=== PATIENT | female | born 1995 | race Caucasian/White ===

== ENCOUNTER 2017-05-12 17:26 | Emergency (ER) | payer SELFPAY ==
[2017-05-12 18:18] LABS: RBC URINE 16 /hpf (0-3); URINE BACTERIA RARE (<OCC); URINE BILIRUBIN NEGATIVE (NEGATIVE); URINE BLOOD 2+ (NEGATIVE); URINE COLOR Yellow (YELLOW); URINE GLUCOSE (UA) NORMAL (Normal); URINE KETONE NEGATIVE (NEGATIVE); URINE LEUKOCYTE ESTERASE NEG Leu/uL (Negative); URINE PROTEIN NEGATIVE (NEGATIVE); URINE UROBILINOGEN NORMAL mg/dL (0.2-1.0); WBC URINE 3 /hpf (0-5)
[2017-05-12] MEDS ORDERED: Sodium Chloride 0.9% 1,000 ML IV ONE (18:24)
[2017-05-12] MEDS ORDERED: Sodium Chloride 0.9% 1,000 ML ONE (18:39)
[2017-05-12 19:02] LABS: BASO # 0.1 K/uL (0.0-0.2); BASO % 0.8 % (0.0-2.0); EOS # 0.2 K/uL (0.0-0.7); EOS % 2.3 % (0.0-4.0); HEMATOCRIT 35.7 % (34.0-47.0); LYMPH # 2.8 K/uL (1.0-4.3); LYMPH % 39.7 % (20.0-40.0); MEAN CELL VOLUME 91.3 fL (81.0-99.0); MEAN CORPUSCULAR HEMOGLOBIN 30.5 pg (27.0-31.0); MEAN CORPUSCULAR HGB CONC 33.4 g/dL (33.0-37.0); MEAN PLATELET VOLUME 9.6 fL (7.2-11.7); MONO # 0.5 K/uL (0.0-0.8); MONO % 7.5 % (0.0-10.0); RED CELL DISTRIBUTION WIDTH 12.7 % (11.5-14.5); WHITE BLOOD COUNT 7.1 K/uL (4.8-10.8)
[2017-05-12 19:11] LABS: CHLORIDE 106 mmol/L (98-107); POTASSIUM 3.8 mmol/L (3.6-5.2); SODIUM 140 mmol/L (132-148)
[2017-05-12 19:13] LABS: BILIRUBIN,TOTAL 0.4 mg/dL (0.2-1.3); CARBON DIOXIDE 22 mmol/L (22-30); GFR AFRICAN-AMERICAN > 60
[2017-05-12 19:14] LABS: ALKALINE PHOSPHATASE 81 U/L (38-126); ALT/SGPT 37 U/L (9-52); AST/SGOT 20 U/L (14-36); BLOOD UREA NITROGEN 10 mg/dL (7-17); CALCIUM 9.1 mg/dl (8.6-10.4); GLUCOSE,RANDOM 75 mg/dL (65-105); TOTAL PROTEIN 6.7 g/dL (6.3-8.3)
--- NOTE | 2017-05-12 20:00 | C.PDOC ---
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: language barrier Onset/Duration Of Symptoms: Days (3), Waxing/Waning Current Symptoms Are (Timing): Still Present Severity: Moderate Location Of Pain/Discomfort: RLQ, Other (Right flank) Radiation Of Pain To:: Back, Flank Quality Of Discomfort: "Pain" Alleviating Factors: None Additional History Per: Prior Records Abnormal Vaginal Bleeding: No Past Medical History Reviewed: Historical Data, Nursing Documentation, Vital Signs Vital Signs: Last Vital Signs Temp 98.2 F 05/12/17 17:34 Pulse 61 05/12/17 17:34 Resp 18 05/12/17 17:34 BP 103/69 05/12/17 17:34 Pulse Ox 99 05/12/17 17:34 - Medical History PMH: No Chronic Diseases Surgical History: No Surg Hx Family History: States: Unknown Family Hx - Social History Hx Alcohol Use: No Hx Substance Use: No - Immunization History Hx Tetanus Toxoid Vaccination: Yes Hx Influenza Vaccination: Yes Hx Pneumococcal Vaccination: Yes Review Of Systems Except As Marked, All Systems Reviewed And Found Negative. Constitutional: Negative for: Fever, Weakness Cardiovascular: Negative for: Chest Pain Respiratory: Negative for: Shortness of Breath Gastrointestinal: Positive for: Abdominal Pain. Negative for: Vomiting, Diarrhea Genitourinary: Negative for: Dysuria Musculoskeletal: Positive for: Back Pain Skin: Negative for: Rash Neurological: Negative for: Weakness, Numbness Physical Exam - Physical Exam Appears: Non-toxic, No Acute Distress Skin: Normal Color, Warm, Dry, No Rash Head: Atraumatic, Normacephalic Eye(s): bilateral: Normal Inspection, PERRL, EOMI Neck: Normal ROM, Supple Cardiovascular: Rhythm Regular Respiratory: Normal Breath Sounds, No Accessory Muscle Use Gastrointestinal/Abdominal: Soft, No Tenderness Back: CVA Tenderness (mild, right) Extremity: Normal ROM Neurological/Psych: Oriented x3, Normal Motor, Normal Sensation ED Course And Treatment - Laboratory Results Result Diagrams: 05/12/17 18:59 05/12/17 18:59 Interpretation Of Abnormal: Microscopic hematuria Urine POC: Negative O2 Sat by Pulse Oximetry: 99 Pulse Ox Interpretation: Normal - CT Scan/US CT abd/pelv Other Rad Studies (CT/US): Read By Radiologist, Radiology Report Reviewed CT/US Interpretation: Mild to moderate right hydroureteronephrosis. Ureteral calculus 3mm in distal right ureter. 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 Progress - Interventions Interventions:: Observation, Intravenous fluid - Medications Administered Intravenous: NSAID - Data Reviewed Data Reviewed: Lab, Diagnostic imaging, Old records - Patient Status Patient status: Mostly improved - Continuity of Care Discussed patient case with:: Patient, Family-HIPPA compliant, ED Nurse - Patient Plan Patient Plan: Discharge, F/U with PCP Disposition Counseled Patient/Family Regarding: Studies Performed, Diagnosis, Need For Followup, Rx Given - Disposition Referrals: Catalina Albarado MD [Staff Provider] - [facility] [Outside] Disposition: HOME/ ROUTINE Disposition Time: 20:01 Condition: IMPROVED Additional Instructions: Drink plenty of fluids. Follow up with a Urologist for further evaluation and treatment. Return to the ER if you develop fever, vomiting, trouble urinating, worsening of symptoms or if you have any other concerns. Prescriptions: Naproxen [Naprosyn] 1 tab PO BID PRN #20 tab PRN Reason: Pain Tamsulosin [Flomax] 0.4 mg PO HS #5 cap Instructions: Renal Colic (ED) Forms: [employer] (Tanzanian) Print Language: CENTRAL AFRICAN - Clinical Impression Clinical Impression: Right distal ureteral calculus, Pelvic kidney
[2017-05-12 20:01] VITALS: BP 120/84; PULSE 65; RESP 20; TEMP 98
[2017-05-12 20:03] VITALS: O2SAT 99
--- NOTE | 2017-05-13 08:29 | CT ---
PROCEDURE: CT Abdomen and Pelvis without intravenous contrast HISTORY: Right flank pain COMPARISON: None. TECHNIQUE: Without contrast.. Contrast Dose: 0 Radiation dose: Total exam DLP = 191.33 mGy-cm. This CT exam was performed using one or more of the following dose reduction techniques: Automated exposure control, adjustment of the mA and/or kV according to patient size, and/or use of iterative reconstruction technique. FINDINGS: LOWER THORAX: Minimal dependent atelectasis LIVER: Unremarkable. No gross lesion or ductal dilatation. GALLBLADDER AND BILE DUCTS: Unremarkable. PANCREAS: Unremarkable. No gross lesion or ductal dilatation. SPLEEN: Unremarkable. ADRENALS: Unremarkable. No mass. KIDNEYS AND URETERS: Ectopic left kidney situated within the left pelvis. 3 mm nonobstructing right lower pole renal calculus. No hydronephrosis. No renal mass. Minimal right hydroureter. No definite ureteral calculus although there is a 5 mm calculus in the right pelvis which may be situated within the distal right ureter. VASCULATURE: Unremarkable. No aortic aneurysm. BOWEL: Unremarkable. No obstruction. No gross mural thickening. APPENDIX: Unremarkable. Normal appendix. PERITONEUM: Unremarkable. No free fluid. No free air. LYMPH NODES: Unremarkable. No enlarged lymph nodes. BLADDER: Unremarkable. REPRODUCTIVE: Unremarkable uterus (deviated towards the right but midline in position. ) BONES: No acute fracture. OTHER FINDINGS: None. IMPRESSION: Questionable distal right ureteral calculus, nonobstructing. Minimal right hydroureter. No hydronephrosis. 3 mm nonobstructing right lower pole renal calculus. Ectopic left pelvic kidney. No other significant abnormality. Preliminary interpretation of this examination was reported by [employer] at 7:46 p.m. on 05/12/2017. There is concurrence of this report with the preliminary interpretation.
== END 2017-05-12 20:21 | disposition home or self-care (01) ==
LOC: C.ER 17:26
DX: N20.1 Calculus of ureter (principal)
CPT/HCPCS: 36415; 74176; 80053; 81001; 83690; 84703; 85025; 96374; 99285; J1885; J7040

== ENCOUNTER 2017-10-15 23:23 | Emergency (ER) | payer SELFPAY ==
[2017-10-16 00:46] LABS: BASO % 0.5 % (0.0-2.0); EOS # 0.1 K/uL (0.0-0.7); EOS % 1.5 % (0.0-4.0); HEMOGLOBIN 12.6 g/dL (11.0-16.0); LYMPH % 29.4 % (20.0-40.0); MEAN CORPUSCULAR HEMOGLOBIN 31.1 pg (27.0-31.0); MEAN CORPUSCULAR HGB CONC 33.8 g/dL (33.0-37.0); MEAN PLATELET VOLUME 9.6 fL (7.2-11.7); MONO # 0.7 K/uL (0.0-0.8); MONO % 9.7 % (0.0-10.0); NEUT # 4.1 K/uL (1.8-7.0); NEUT % 58.9 % (50.0-75.0); RBC 4.04 Mil/uL (3.80-5.20); RED CELL DISTRIBUTION WIDTH 12.5 % (11.5-14.5)
[2017-10-16 00:49] LABS: SQUAMOUS EPITHIAL 13 /hpf (0-5); URINE BACTERIA RARE (<OCC); URINE BILIRUBIN NEGATIVE (NEGATIVE); URINE BLOOD NEGATIVE (NEGATIVE); URINE CLARITY Hazy (Clear); URINE COLOR Yellow (YELLOW); URINE GLUCOSE (UA) NORMAL (Normal); URINE LEUKOCYTE ESTERASE NEG Leu/uL (Negative); URINE NITRATE NEGATIVE (NEGATIVE); URINE PROTEIN NEGATIVE (NEGATIVE); URINE UROBILINOGEN NORMAL mg/dL (0.2-1.0)
[2017-10-16 00:59] LABS: ALB/GLOB RATIO 1.1 (1.0-2.1); ALBUMIN 3.7 g/dL (3.5-5.0); ALT/SGPT 19 U/L (9-52); AST/SGOT 22 U/L (14-36); BLOOD UREA NITROGEN 7 mg/dL (7-17); GFR AFRICAN-AMERICAN > 60; GFR NON-AFRICAN AMERICAN > 60
[2017-10-16 01:09] LABS: HCG,QUALITATIVE URINE POSITIVE (NEGATIVE)
--- NOTE | 2017-10-16 02:25 | US ---
EXAM: US First Trimester, Transabdominal CLINICAL HISTORY: 21 years old, female; Pain; complicated by abdominal or pelvic pain; Lower; First trimester; Gestational age or lmp: 08/08/17; ; Additional info: Abd pain TECHNIQUE: Real-time transabdominal obstetrical ultrasound of the maternal pelvis and a first trimester with image documentation. Grayscale, color and spectral pulse Doppler images are submitted.A duplex/doppler ultrasound was performed specifically BOTH COLOR FLOW AND spectral Doppler analysis (waveforms) were performed and interpreted. COMPARISON: No relevant prior studies available. FINDINGS: Gestation: There is single intrauterine gestational sac with presence of yolk sac, pole The heart motion at the rate of 163 beats per minute. Estimated gestational age calculated from [place] rump length is estimated to be 8 weeks 1 days. Estimated gestational age calculated from mean sac diameter is estimated to BE 7 weeks 5 days. The yolk sac measures 0.18 cm. Uterus/cervix: The cervix is closed and measures 3.3 cm. Ovaries: Right ovarian corpus luteum measuring 2.0 x 1.8 x 2.1 cm. The right ovary measures 3.4 x 2.4 x 3.67 cm. Duplex assessment demonstrates presence of color Doppler signal and spectral Doppler waveform in right ovary. The left ovary measures 3.5 x 1.6 x 2.7 cm. Duplex assessment demonstrates presence of color Doppler signal and spectral Doppler waveform in left ovary. No mass. Free fluid: No free fluid. Bladder: Partially distended bladder. Other findings: Clinical information off left pelvic kidney is submitted. The left kidney is not imaged. IMPRESSION: 1. Right ovarian corpus luteum measuring 2.0 x 1.8 x 2.1 cm. 2. IUP as described.
--- NOTE | 2017-10-16 02:27 | C.PDOC ---
History Of Present Illness 21 year old female who is 9 weeks by date presents to the ER with a complaint of lower suprapubic pain x few hours. Denies vaginal bleeding, vaginal discharge, hematuria, or dysuria. Time Seen by Provider: 10/16/17 00:07 Chief Complaint (Nursing): Abdominal Pain History Per: Patient History/Exam Limitations: no limitations Onset/Duration Of Symptoms: Hrs Current Symptoms Are (Timing): Still Present Location Of Pain/Discomfort: Suprapubic Radiation Of Pain To:: None Quality Of Discomfort: Unable To Describe Associated Symptoms: denies: Urinary Symptoms, Other (Vaginal bleeding, Vaginal discharge) Exacerbating Factors: None Alleviating Factors: None Recent travel outside of the [place]: No Abnormal Vaginal Bleeding: No Past Medical History Reviewed: Historical Data, Nursing Documentation, Vital Signs Vital Signs: Last Vital Signs Temp 98.1 F 10/16/17 03:52 Pulse 71 10/16/17 03:52 Resp 17 10/16/17 03:52 BP 108/66 10/16/17 03:52 Pulse Ox 100 10/16/17 04:20 Family History: States: Unknown Family Hx - Social History Hx Alcohol Use: No Hx Substance Use: No - Immunization History Hx Tetanus Toxoid Vaccination: Yes Hx Influenza Vaccination: No Hx Pneumococcal Vaccination: No Review Of Systems Constitutional: Negative for: Fever, Chills Gastrointestinal: Positive for: Abdominal Pain. Negative for: Nausea, Vomiting Genitourinary: Negative for: Dysuria, Hematuria, Vaginal Discharge, Vaginal Bleeding Physical Exam - Physical Exam Appears: Non-toxic, No Acute Distress Skin: Normal Color, Warm, Dry Head: Atraumatic, Normacephalic Eye(s): bilateral: Normal Inspection Oral Mucosa: Moist Chest: Symmetrical, No Tenderness Cardiovascular: Rhythm Regular Respiratory: Normal Breath Sounds, No Rales, No Rhonchi, No Wheezing Gastrointestinal/Abdominal: Soft, Tenderness (Suprapubic), No Guarding, No Rebound Pelvic: No Vaginal Bleeding, Vaginal Discharge (Minimal white), No Cervical Motion Tenderness, Other (OST is closed) Neurological/Psych: Oriented x3, Normal Speech ED Course And Treatment - Laboratory Results Result Diagrams: 10/16/17 00:38 10/16/17 00:38 O2 Sat by Pulse Oximetry: 100 (Room air) Pulse Ox Interpretation: Normal - CT Scan/US US Other Rad Studies (CT/US): Read By Radiologist, Radiology Report Reviewed CT/US Interpretation: EXAM: US First Trimester, Transabdominal. CLINICAL HISTORY: 21 years old, female; Pain; complicated by abdominal or pelvic pain; Lower; First. trimester; Gestational age or lmp: ; ; Additional info: Abd pain. TECHNIQUE: Real-time transabdominal obstetrical ultrasound of the maternal pelvis and a first trimester. with image documentation. Grayscale, color and spectral pulse Doppler images are. submitted.A duplex/doppler ultrasound was performed specifically BOTH COLOR FLOW AND. spectral Doppler analysis (waveforms) were performed and interpreted. COMPARISON: No relevant prior studies available. FINDINGS: Gestation: There is single intrauterine gestational sac with presence of yolk sac, pole The . heart motion at the rate of 163 beats per minute. Estimated gestational age calculated from [place] rump length is estimated to be 8 weeks 1 days. Estimated gestational age calculated. from mean sac diameter is estimated to BE 7 weeks 5 days. The yolk sac measures 0.18 cm. Uterus/cervix: The cervix is closed and measures 3.3 cm. Ovaries: Right ovarian corpus luteum measuring 2.0 x 1.8 x 2.1 cm. The right ovary measures 3.4. x 2.4 x 3.67 cm. Duplex assessment demonstrates presence of color Doppler signal and spectral. Doppler waveform in right ovary. The left ovary measures 3.5 x 1.6 x 2.7 cm. Duplex assessment. demonstrates presence of color Doppler signal and spectral Doppler waveform in left ovary. No. mass. Free fluid: No free fluid. Bladder: Partially distended bladder. Other findings: Clinical information off left pelvic kidney is submitted. The left kidney is not imaged. IMPRESSION: 1. Right ovarian corpus luteum measuring 2.0 x 1.8 x 2.1 cm. 2. IUP as described. Progress Note: Blood work, urinalysis, and US ordered. Patient resting comfortably in the ER in no acute distress. Patient reassured that she is in no acute distress at this time, will dis charge home with instructions to follow up with PMD or return to ER if symptoms worsen. Disposition Counseled Patient/Family Regarding: Diagnosis, Need For Followup - Disposition Referrals: [facility] [employer] [facility] [Outside] Disposition: HOME/ ROUTINE Disposition Time: 03:30 Condition: STABLE Additional Instructions: Sigue en la clinica de mujeres ( [employer]) Scarlett tylenol regular si dolor Regresa si el dolor se empeora o si may vaginal Prescriptions: Vit Calc,Iron,Folic [ Vitamins] 1 each PO DAILY #30 tablet Instructions: Vitamins (By mouth), (ED), Ovarian Cyst (ED) Forms: [employer] (Bulgarian) Print Language: MALTESE - Clinical Impression Clinical Impression: Intrauterine , Corpus luteum cyst of right ovary - PA / FIBRE COMPOSITE TECHNICIAN / Resident Statement MD/DO has reviewed & agrees with the documentation as recorded. - Scribe Statement The provider has reviewed the documentation as recorded by the Scribe Keith Morelos All medical record entries made by the Scribe were at my direction and personally dictated by me. I have reviewed the chart and agree that the record accurately reflects my personal performance of the history, physical exam, medical decision making, and the department course for this patient. I have also personally directed, reviewed, and agree with the discharge instructions and disposition.
[2017-10-16 03:32] VITALS: O2SAT 100
[2017-10-16 03:53] VITALS: BP 108/66; PULSE 71; RESP 17; TEMP 98.1
== END 2017-10-16 04:01 | disposition home or self-care (01) ==
LOC: C.ER 23:23
DX: O34.81 Maternal care for other abnormalities of pelvic organs, first trimester (principal); N83.11 Corpus luteum cyst of right ovary; Z3A.09 9 weeks gestation of pregnancy